=== PATIENT | female | born 1960 | race African-American/Black ===

== ENCOUNTER 2021-12-26 08:40 | Emergency (ER) | payer OTHER, SELFPAY ==
--- NOTE | ~2021-12-26 | XR_ITS ---
EXAMINATION: XR FOOT, LEFT CLINICAL INFORMATION: Left foot injury. COMPARISON: Most recent left foot radiographs dated 12/08/2013. TECHNIQUE: AP, lateral, and oblique views of the left foot. FINDINGS: There is a small ossification lateral to the anterior process of the calcaneus measuring up to 0.3 cm in the region of the overlying skin marker. Findings may represent a tiny cortical fracture fragment. Overlying soft tissue swelling. Adjacent accessory ossicles along the lateral aspect of the cuboid. No joint space narrowing or marginal osteophytes. No osseous erosion. XR/XR foot LT 2V IMPRESSION: Probable tiny cortical fracture fragment along the lateral aspect of the anterior calcaneal process with overlying soft tissue swelling.
[2021-12-26 08:43] VITALS: BP 135/71; PULSE 66; RESP 17; TEMP 36.9; O2SAT 99; BMI 28.6
--- NOTE | 2021-12-26 09:09 | ED.LOWEXIN ---
HPI - Extremity Injury (Lower) General Chief Complaint: Extremity Injury, Lower Stated Complaint: L Ankle Pain S/P Fall 12/25/21 Time Seen by Provider: 12/26/21 09:08 Source: patient Mode of arrival: ambulatory Limitations: no limitations History of Present Illness HPI Narrative: 61-year-old female presents for left ankle pain. Last night patient was in the garage and was wearing sandals, when she caught her foot against the edge of a rug and the concrete floor. She rolled her left ankle. She did not hit her head, no loss of consciousness, not on anticoagulation. Patient can bear weight, although it hurts to walk. No numbness or tingling. Pain is a throbbing in her left lateral ankle in a 02/07. Patient states she had a fracture in her left foot sometime in the past. MD complaint: ankle injury Onset (ago): day(s) (1) Injury: Left: ankle Type of Injury: inversion Place: home Severity: moderate Severity scale (1-10): 7 Relieving factors: cold therapy Exacerbating factors: weight bearing Associated symptoms: swelling and ambulatory Other symptoms: none Treatments prior to arrival: cold therapy Related Data Allergies Allergy/AdvReac Type Severity Reaction Status Date / Time acetaminophen [From TYLOX] Allergy Intermediate RASH Unverified 04/17/20 16:48 oxycodone [From TYLOX] Allergy Intermediate RASH Unverified 04/17/20 16:48 Tylox Allergy Unknown Uncoded 12/27/13 00:00 Review of Systems Constitutional: Constitutional: Denies body ache(s), Denies chills, Denies fatigue, Denies fever(s), Denies headache(s), Denies malaise and Denies weakness Eyes: Eyes: Denies diplopia ENT: Denies vertigo, Denies dizziness, Denies headache(s) and Denies throat swelling Cardiovascular: Cardiovascular: Denies chest pain, Denies syncope, Denies leg edema, Denies lightheadedness, Denies Loss of Consciousness, Denies palpitations and Denies dyspnea Respiratory: Respiratory: Denies chest congestion, Denies cough and Denies dyspnea Gastrointestinal: Gastrointestinal: Denies abdominal pain, Denies hematochezia, Denies constipation, Denies diarrhea and Denies vomiting Musculoskeletal: Musculoskeletal: Reports arthralgias, Reports joint swelling, Reports limited range of motion, Denies muscle weakness, Denies numbness, Denies radiating pain into limb and Denies tingling Neurologic: Denies confusion, Denies vertigo, Denies dizziness, Denies syncope, Denies headache(s), Denies focal weakness, Denies numbness, Denies Sensory deficit (Neuro), Denies tingling and Denies weakness Psychiatric: Psychiatric: Denies anxiety, Denies confusion and Denies depression Endocrine: Endocrine: Denies fatigue and Denies palpitations Allergic/Immunologic: Allergic/Immunologic: Denies throat swelling PMFSH Social History Social History Advance Directives: Yes Advance Directives Information Provided: No Advance Directives on File: No Physical Exam Vital Signs: Vital Signs: Last Vital Signs Temp 98.5 F 12/26/21 08:43 Pulse 66 12/26/21 08:43 Resp 17 12/26/21 08:43 BP 135/71 12/26/21 08:43 Pulse Ox 99 12/26/21 08:43 BMI result Body Mass Index 28.6 Const: General: No confusion Nutritional Appearance: well nourished Orientation/consciousness: No confusion Limitations: no limitations Eyes: Conjunctivae: conjunctivae normal Pupils: Equal, round and reactive pupils present EOM: EOMs intact bilaterally Neck: Neck: Yes full ROM, Yes no lymphadenopathy and Yes supple Resp: Effort & Inspection: normal respiratory effort and able to speak in complete sentences Auscultation: clear to auscultation bilaterally, no crackles, no rales, no rhonchi and no wheezes Cardio: Rate: regular rate Rhythm: regular rhythm Heart sounds: S1 normal heart sound present and S2 normal heart sound present GI: Inspection: Yes normal to inspection Palpation (GI): Soft to palpation, nontender, no guarding and not rigid Percussion: Yes normal to percussion Auscultation: normal bowel sounds Skin: General skin exam: no rashes or lesions noted Neuro: General: No confusion Cranial nerves: Yes Equal, round and reactive pupils present Sensory Exam: No Sensory deficit (Neuro) Extrem: Left lower extremity: normal capillary refill and ankle Details: tenderness Location: of the anterior talofibular ligament and swelling Details: laterally; Negative for no warmth, no lacerations, no ecchymosis and no crepitus; No no cyanosis Psych: Appearance: grossly normal Affect: normal affect Attitude: cooperative Thought process: Normal thought process present Course Course Course Narrative: 61-year-old female presents for left lateral ankle pain and swelling after inverting her ankle while tripping on a rug in her garage yesterday On exam, patient has intact left lower extremity pulses, sensation, motor strength, and deep tendon reflexes. Patient is tender and swollen over her ATF ligament Patient has a Tylenol allergy. Getting x-ray, gave Yifan. Reevaluation(s) Reevaluation #1: FINDINGS: There is a small ossification lateral to the anterior process of the calcaneus measuring up to 0.3 cm in the region of the overlying skin marker. Findings may represent a tiny cortical fracture fragment. Overlying soft tissue swelling. Adjacent accessory ossicles along the lateral aspect of the cuboid. No joint space narrowing or marginal osteophytes. No osseous erosion.? XR/XR foot LT 2V IMPRESSION: Probable tiny cortical fracture fragment along the lateral aspect of the anterior calcaneal process with overlying soft tissue swelling. TT with Yajaira Harvey, gave patient walking boot, WBAT, f/u with Ortho, RICE, Naproxen Discharge Plan Discharge Clinical Impression: Inversion sprain of left ankle, Closed fracture of anterior process of calcaneus Patient Disposition: Home, Self-Care Instructions: Ankle Sprain (ED), Foot Fracture in Adults (ED), R.I.C.E. Treatment (ED) Additional Instructions: [phone] Referrals: Chet Pinedo MD [Physician] -
[2021-12-26] MEDS: Ibuprofen 800 MG TABLET PO (09:35)
== END 2021-12-26 10:44 | disposition home or self-care (01) ==
PROVIDERS: Emergency Provider Emergency Medicine; PCP Internal Medicine
DX: S93.402A Sprain of unspecified ligament of left ankle, initial encounter (principal); S92.022A Displaced fracture of anterior process of left calcaneus, initial encounter for closed fracture; X50.1XXA Overexertion from prolonged static or awkward postures, initial encounter; Y93.9 Activity, unspecified; Y92.9 Unspecified place or not applicable; Y99.9 Unspecified external cause status
CPT/HCPCS: 73620; 99283

== ENCOUNTER 2022-09-24 03:38 | Emergency (ER) | payer OTHER, SELFPAY ==
--- NOTE | ~2022-09-24 | XR_ITS ---
EXAMINATION: XR HIP, RIGHT CLINICAL INFORMATION: Fall COMPARISON: None TECHNIQUE: Two views of the right hip. AP pelvis. FINDINGS: Alignment across the hips is anatomic. Joint spaces are relatively well-preserved, with mild acetabular spurring. No acute fracture is seen. Sacroiliac joints and pubic symphysis appear intact. Calcific tendinosis is suspected superior to the right greater trochanter. XR/XR hip RT w [id number] IMPRESSION: No acute findings identified.
[2022-09-24 04:02] VITALS: BP 130/70; PULSE 60; RESP 18; TEMP 37.2; O2SAT 98; BMI 28.3
[2022-09-24 05:15] LABS: Basophils Percent Auto 0.2 % (0-2); Hematocrit 34.3 % (37.0-47.0); Imm Gran Abs Auto 0.03 X10*3/uL (0.00-0.03); Imm Gran Pct Auto 0.3 % (0.0-0.4); Lymphocytes Absolute Auto 2.1 X10*3/uL (1.2-4.9); Lymphocytes Percent Auto 19.7 % (20-40); MANUAL DIFF FLAG NO; Mean Corpuscular HGB Conc 32.1 g/dl (31.0-35.0); Mean Corpuscular Hemoglobin 26.9 pg (27.0-33.0); Mean Corpuscular Volume 83.9 fL (80.0-98.0); Mean Platelet Volume 10.1 fL (9.4-12.3); Monocytes Percent Auto 9.3 % (2-11); Neutrophils Absolute Auto 7.6 x10*3/uL (2.0-8.3); Neutrophils Percent Auto 70.5 % (45-73); Platelet Count 213 X10*3/uL (160-400); Red Blood Count 4.09 X10*6/uL (4.20-5.50); Red Cell Distribution Width 15.1 % (11.0-16.0); White Blood Count 10.8 X10*3/uL (4.8-10.8)
[2022-09-24 05:44] LABS: Alanine Aminotransferase 12 U/L (0-31); Albumin Level 3.5 g/dL (3.5-5.0); Alkaline Phosphatase 60 U/L (39-117); Anion Gap 12 (12-20); Aspartate Amino Transferase 11 U/L (5-31); Bilirubin Total 0.6 mg/dL (0.0-1.0); Blood Urea Nitrogen 12 mg/dL (9-16); Calcium 8.6 mg/dL (8.4-10.2); Carbon Dioxide 25 mmol/L (22-29); Chloride 109 mmol/L (96-108); Creatinine Clr Calc Pharmacy 98.1; Estimated Glomerular Filt Rate > 60; Glucose Random 98 mg/dL (60-115); Potassium 3.7 mmol/L (3.3-5.1); Sodium 142 mmol/L (135-145); Total Protein 5.7 g/dL (6.5-8.0)
[2022-09-24 05:59] VITALS: BP 106/44; PULSE 62; RESP 16; TEMP 36.8; O2SAT 99
--- NOTE | 2022-09-24 07:22 | ED_ITS ---
HPI - Fall General Chief Complaint: Fall Stated Complaint: Fall on 09/23 Hip/R Leg pain Time Seen by Provider: 09/24/22 07:19 Source: patient Mode of arrival: ambulatory Limitations: no limitations History of Present Illness HPI Narrative: 61-year-old female presents emergency room after falling hurting her right hip yesterday. Patient denies any fevers chills cough nausea vomiting or diarrhea. Patient states she is able ambulate it hurts to walk on that right hip. Patient did wait for over 5 hours prior to being seen an x-ray done which did not show any acute fractures and been read by Radiology. She denies hitting her head she has lost consciousness complaint: fall Related Data Home Medications Medication Instructions Recorded Confirmed cyanocobalamin (vitamin B-12) 1,000 mcg PO DAILY 01/08/22 1,000 mcg tablet levothyroxine 50 mcg tablet 50 mcg PO DAILY 01/08/22 Previous Rx's Medication Instructions Recorded naproxen 500 mg tablet 500 mg PO BID 10 days #20 tabs 12/26/21 Allergies Allergy/AdvReac Type Severity Reaction Status Date / Time acetaminophen [From TYLOX] Allergy Intermediate RASH Verified 09/24/22 04:02 oxycodone [From TYLOX] Allergy Intermediate RASH Verified 09/24/22 04:02 Tylox Allergy Unknown Hives Uncoded 01/08/22 10:42 Review of Systems Review of Systems: Review of systems: General: Patient denies any fever chills recent illness or falls Musculoskeletal: Denies back pain or body aches or other injuries HEENT: denies headache, runny nose, ear pain Respiratory: denies shortness of breath, cough Cardiovascular: no chest pain or palpitations : denies dysuria, frequency Abdomen: no nausea vomiting denies abdominal pain Extremities: no swelling, right hip pain Skin: no diaphoresis Yes all other systems are reviewed and are negative REPLACED BY [facility] Past Medical History Medical History Hyperthyroidism Social History Social History (Updated 01/08/22 @ 10:48 by CALDERON Carmona) Alcohol intake: current Alcohol intake frequency: holidays/special occasions only Alcohol type: hard liquor Smoked in Last 30 Days: Yes Use of substances other than those prescribed or required for medical reasons: No Advance Directives: No Advance Directives Information Provided: Yes Patient : No Current occupational status: unemployed 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 Physical Exam Vital Signs: Vital Signs: Last Vital Signs Temp 98.2 F 09/24/22 05:59 Pulse 62 09/24/22 05:59 Resp 16 09/24/22 05:59 BP 106/44 L 09/24/22 05:59 Pulse Ox 99 09/24/22 05:59 O2 Del Method 09/24/22 05:59 BMI result Body Mass Index 28.3 General: Well-appearing well-nourished in no signs of distress HEENT: Normocephalic atraumatic Neck: No signs of JVD, no masses no tenderness or lymphadenopathy Cardiovascular: Regular rate and rhythm Respiratory: Clear to auscultation bilaterally Abdomen: Soft nontender no masses Extremities: tenderness to palpation of the right hip posterior and anteriorly full range oNormal pedal pulses no signs of edema Skin: Dry warm no rashes Back: No tenderness full ROM Medications Administered Discontinued Medications Generic Name Dose Route Start Last Admin Trade Name Jacquie PRN Reason Stop Dose Admin Acetaminophen 650 mg 09/24/22 07:22 09/24/22 07:32 Acetaminophen 325 Mg Tablet PO 09/24/22 07:23 650 mg ONCE ONE Administration Ibuprofen 400 mg 09/24/22 07:22 09/24/22 07:32 Ibuprofen 400 Mg Tablet PO 09/24/22 07:23 400 mg ONCE ONE Administration Medical Decision Making Medical Decision Making [facility] Narrative: x-ray was done I will give patient Tylenol ibuprofen and see if patient can ambulate in the department. Patient did well after ambulation I did offer to get CAT scans patient states she would like to see if she feels the next few days she did get Tylenol ibuprofen states does feel a little better but still limping at this time. Differential Diagnosis Differential Diagnoses: The differential diagnosis associated with the presentation includes fracture contusion Lab Data 09/24/22 05:10 09/24/22 05:10 Labs: Lab Results 09/24/22 09/24/22 Range/Units 05:10 05:10 WBC 10.8 (4.8-10.8) X10*3/uL RBC 4.09 L (4.20-5.50) X10*6/uL Hgb 11.0 L (12.0-16.0) g/dl Hct 34.3 L (37.0-47.0) % MCV 83.9 (80.0-98.0) fL MCH 26.9 L (27.0-33.0) pg MCHC 32.1 (31.0-35.0) g/dl RDW 15.1 (11.0-16.0) % Plt Count 213 (160-400) X10*3/uL MPV 10.1 (9.4-12.3) fL Immature Gran % (Auto) 0.3 (0.0-0.4) % Neut % (Auto) 70.5 (45-73) % Lymph % (Auto) 19.7 L (20-40) % [place] % (Auto) 9.3 (2-11) % Eos % (Auto) 0.0 (0-4) % Baso % (Auto) 0.2 (0-2) % Lymph # (Auto) 2.1 (1.2-4.9) X10*3/uL [place] # (Auto) 1.0 (0.1-1.2) X10*3/uL Eos # (Auto) 0.0 (0.0-0.4) X10*3/uL Baso # (Auto) 0.0 (0.0-0.2) X10*3/uL Abs Immat Gran (auto) 0.03 (0.00-0.03) X10*3/uL Absolute Neuts (auto) 7.6 (2.0-8.3) x10*3/uL Absolute Nucleated RBC 0.000 (0.0-0.012) X10*3/uL Nucleated RBC % (auto) 0.0 (0.0-0.2) /100WBC Sodium 142 (135-145) mmol/L Potassium 3.7 (3.3-5.1) mmol/L Chloride 109 H (96-108) mmol/L Carbon Dioxide 25 (22-29) mmol/L Anion Gap 12 (12-20) BUN 12 (9-16) mg/dL Creatinine 0.68 (0.5-1.4) mg/dL Estim Creat Clear Calc 98.1 Estimated GFR > 60 Random Glucose 98 (60-115) mg/dL Calcium 8.6 (8.4-10.2) mg/dL Total Bilirubin 0.6 (0.0-1.0) mg/dL AST 11 (5-31) U/L ALT 12 (0-31) U/L Alkaline Phosphatase 60 (39-117) U/L Total Protein 5.7 L (6.5-8.0) g/dL Albumin 3.5 (3.5-5.0) g/dL Discharge Plan Discharge Clinical Impression: Contusion of hip, right Patient Disposition: Home, Self-Care Instructions: Contusion in Adults (ED), Hip Contusion (ED) Additional Instructions: Please call to follow up. If you have any other concerns please return to the ED. Prescriptions: No Action naproxen 500 mg tablet 500 mg PO BID 10 Days Qty: 20 0RF levothyroxine 50 mcg tablet 50 mcg PO DAILY cyanocobalamin (vitamin B-12) 1,000 mcg tablet 1,000 mcg PO DAILY Stand Alone Forms: Work/School Release
[2022-09-24] MEDS: Ibuprofen 400 MG TABLET PO (07:32)
[2022-09-24] MEDS: Acetaminophen 325 MG TABLET 650 MG PO (07:32)
== END 2022-09-24 08:17 | disposition home or self-care (01) ==
PROVIDERS: Emergency Provider Student in an Organized Health Care Education/Training Program
DX: S70.01XA Contusion of right hip, initial encounter (principal); M25.551 Pain in right hip; W01.0XXA Fall on same level from slipping, tripping and stumbling without subsequent striking against object, initial encounter; Y93.9 Activity, unspecified; Y92.9 Unspecified place or not applicable; Y99.9 Unspecified external cause status; Z79.899 Other long term (current) drug therapy
CPT/HCPCS: 36415; 73502; 80053; 85025; 99283; 99284